=== PATIENT | female | born 1990 | race Hispanic/Latino ===

== ENCOUNTER 2024-07-17 16:40 | Emergency (ER) | payer OTHER, SELFPAY ==
[2024-07-17] VITALS (7 sets, daily range): BP systolic 94–102; BP diastolic 54–63; PULSE 63–81; RESP 16; TEMP 37; O2SAT 98–99; BMI 21.6
--- NOTE | 2024-07-17 17:07 | ED_ITS ---
HPI - General Adult <Isabelle Brink MD - Last Filed: 07/18/24 18:28> General Chief complaint: Urogenital-Female Stated complaint: LRQ pelvic pain, UTI Time Seen by Provider: 07/17/24 17:07 History of Present Illness HPI narrative: 34-year-old woman with no significant medical history complains of pelvic pain that has been worsening since June 29. She had an unprotected sexual encounter at that time was menstruating. Believe she took her tampon out but is worried that may still be remaining. I am not complaining of significant vaginal discharge but is having increasing right lower quadrant pain, shuffling walk difficulty standing up straight it is now radiating through into her right back. She has not noticing significant dysuria. She has had some low-grade fevers but no upper abdominal pain, nausea or vomiting. She has not coughing there has been no chest pain or palpitations. Related Data Previous Rx's Medication Instructions Recorded doxycycline hyclate 100 mg capsule 100 mg PO BID 14 days #28 caps 07/17/24 hydrocodone 5 mg-acetaminophen 325 1 tab PO Q8H PRN pain #10 tabs 07/17/24 mg tablet metronidazole 500 mg tablet 500 mg PO BID #28 tabs 07/17/24 Allergies Allergy/AdvReac Type Severity Reaction Status Date / Time amitriptyline Allergy Unknown Verified 07/17/24 17:25 Review of Systems <Isabelle Brink MD - Last Filed: 07/18/24 18:28> Review of Systems Narrative: Pertinent positive and negative findings as per HPI Patient History <Isabelle Brink MD - Last Filed: 07/18/24 18:28> Social History Smoking Status: Former smoker Smoking Status: Former smoker Substance Use Type: does not use Exam <Isabelle Brink MD - Last Filed: 07/18/24 18:28> Initial Vital Signs Initial Vital Signs: Vital Signs Temperature 98.6 F 07/17/24 16:49 Pulse Rate 74 07/17/24 16:49 Respiratory Rate 16 07/17/24 16:49 Blood Pressure 98/54 L 07/17/24 16:49 Pulse Oximetry 99 07/17/24 16:49 Oxygen Delivery Method Room Air 07/17/24 16:49 General: Healthy appearing, in pain and has difficulty standing from a chair . Able to give a complete and coherent history. HEENT: Moist mucous membranes, normal sclera with reactive pupils, Respiratory: Lungs are clear to auscultation, no wheezing no rales no rhonchi. Full and symmetrical air movement Cardiac: Regular rate and rhythm no murmurs no bruits Abdomen: Soft, mild tenderness in the upper abdomen and left lower quadrant significant tenderness in the right Lower quadrant. Minor guarding without obvious peritoneal signs Pelvic exam: External genitalia is unremarkable, no vesicles or abnormal lesions. No significant odor or vaginal discharge, she has significant cervical motion tenderness and tenderness into the right adnexa Skin: Warm and dry, no rashes Neurologic: Grossly neurologically intact with no obvious asymmetries or abnormalities Extremities: No trauma, well perfused Psych: Cooperative, appropriate insight and affect <Emelina Jack MD - Last Filed: 07/18/24 04:04> Initial Vital Signs Initial Vital Signs: Vital Signs Temperature 98.6 F 07/17/24 16:49 Pulse Rate 74 07/17/24 16:49 Respiratory Rate 16 07/17/24 16:49 Blood Pressure 98/54 L 07/17/24 16:49 Pulse Oximetry 99 07/17/24 16:49 Oxygen Delivery Method Room Air 07/17/24 16:49 Course <Isabelle Brink MD - Last Filed: 07/18/24 18:28> Orders Ordered: Discontinued Medications Hydromorphone HCl (Hydromorphone 0.5 Mg Inj) 0.5 mg IV Q15MIN PRN PRN Reason: Pain, Last Admin: 07/17/24 19:11 Dose: 0.5 mg Documented By: Admin: 07/17/24 18:18 Dose: 0.5 mg Documented By: SB Sodium Chloride (Normal Saline 0.9%) 1,000 mls @ 1,000 mls/hr IV BOLUS ONE Stop: 07/17/24 18:19 Last Infusion: 07/17/24 18:19 Dose: Infused Documented By: Admin: 07/17/24 17:28 Dose: 1,000 mls/hr Documented By: SB Ceftriaxone Sodium 2,000 mg/ (Sodium Chloride) 100 mls @ 200 mls/hr IV NOW ONE Stop: 07/17/24 17:22 Last Infusion: 07/17/24 18:19 Dose: Infused Documented By: Admin: 07/17/24 17:31 Dose: 200 mls/hr Documented By: SB Doxycycline Hyclate 100 mg/ (Sodium Chloride) 100 mls @ 100 mls/hr IV NOW ONE Stop: 07/17/24 17:22 Last Infusion: 07/17/24 19:30 Dose: Infused Documented By: Admin: 07/17/24 18:18 Dose: 100 mls/hr Documented By: LORNA Metronidazole (Flagyl) 500 mg in 100 mls @ 100 mls/hr IV NOW ONE Stop: 07/17/24 18:20 Last Infusion: 07/17/24 20:50 Dose: Infused Documented By: Admin: 07/17/24 19:45 Dose: 100 mls/hr Documented By: SB Ketorolac Tromethamine (Ketorolac 30 Mg/Ml Vial) 15 mg IV NOW ONE Stop: 07/17/24 17:31 Last Admin: 07/17/24 17:33 Dose: 15 mg Documented By: LORNA Ondansetron HCl (Ondansetron 4 Mg/2 Ml Inj) 4 mg IV NOW ONE Stop: 07/17/24 17:21 Last Admin: 07/17/24 17:27 Dose: 4 mg Documented By: LORNA Vital Signs Vital signs: Vital Signs - 8 hr 07/17/24 20:00 07/17/24 20:00 07/17/24 20:30 Pulse Rate 65 Blood Pressure 102/63 100/63 Pulse Oximetry 98 07/17/24 20:30 Pulse Rate 81 Blood Pressure Pulse Oximetry 99 <Emelina Jack MD - Last Filed: 07/18/24 04:04> Orders Ordered: Discontinued Medications Hydromorphone HCl (Hydromorphone 0.5 Mg Inj) 0.5 mg IV Q15MIN PRN PRN Reason: Pain, Last Admin: 07/17/24 19:11 Dose: 0.5 mg Documented By: Admin: 07/17/24 18:18 Dose: 0.5 mg Documented By: LORNA Sodium Chloride (Normal Saline 0.9%) 1,000 mls @ 1,000 mls/hr IV BOLUS ONE Stop: 07/17/24 18:19 Last Infusion: 07/17/24 18:19 Dose: Infused Documented By: Admin: 07/17/24 17:28 Dose: 1,000 mls/hr Documented By: SB Ceftriaxone Sodium 2,000 mg/ (Sodium Chloride) 100 mls @ 200 mls/hr IV NOW ONE Stop: 07/17/24 17:22 Last Infusion: 07/17/24 18:19 Dose: Infused Documented By: Admin: 07/17/24 17:31 Dose: 200 mls/hr Documented By: SB Doxycycline Hyclate 100 mg/ (Sodium Chloride) 100 mls @ 100 mls/hr IV NOW ONE Stop: 07/17/24 17:22 Last Infusion: 07/17/24 19:30 Dose: Infused Documented By: Admin: 07/17/24 18:18 Dose: 100 mls/hr Documented By: SB Metronidazole (Flagyl) 500 mg in 100 mls @ 100 mls/hr IV NOW ONE Stop: 07/17/24 18:20 Last Infusion: 07/17/24 20:50 Dose: Infused Documented By: Admin: 07/17/24 19:45 Dose: 100 mls/hr Documented By: LORNA Ketorolac Tromethamine (Ketorolac 30 Mg/Ml Vial) 15 mg IV NOW ONE Stop: 07/17/24 17:31 Last Admin: 07/17/24 17:33 Dose: 15 mg Documented By: LORNA Ondansetron HCl (Ondansetron 4 Mg/2 Ml Inj) 4 mg IV NOW ONE Stop: 07/17/24 17:21 Last Admin: 07/17/24 17:27 Dose: 4 mg Documented By: LORNA Vital Signs Vital signs: Vital Signs - 8 hr 07/17/24 20:00 07/17/24 20:00 07/17/24 20:30 Pulse Rate 65 Blood Pressure 102/63 100/63 Pulse Oximetry 98 07/17/24 20:30 Pulse Rate 81 Blood Pressure Pulse Oximetry 99 Medical Decision Making <Isabelle Brink MD - Last Filed: 07/18/24 18:28> Lab Data 07/17/24 17:26 07/17/24 17:26 Labs: Lab Results 07/17/24 07/17/24 Range/Units 17:10 17:26 WBC 5.2 (4.5-11.0) X10^3/uL RBC 3.42 L (4.0-5.2) X10^6/uL Hgb 9.8 L (12.0-16.0) g/dL Hct 29.8 L (36-46) % MCV 87.1 (80-100) fL MCH 28.7 (26-34) PG MCHC 32.9 (30-36) % RDW 14.8 (11.6-14.8) % Plt Count 297 (150-400) X10^3/uL Neut % (Auto) 67.0 (50-75) % Lymph % (Auto) 21.8 L (25-40) % [place] % (Auto) 10.4 (3-14) % Eos % (Auto) 0.2 L (2-4) % Baso % (Auto) 0.6 (0-2) % Neut # (Auto) 3500 (2521-6687) /uL Lymph # (Auto) 1100 (6919-2250) /uL [place] # (Auto) 500 (0-900) /uL Eos # (Auto) 0 (0-450) /uL Baso # (Auto) 0 (0-100) /uL Sodium 139 (137-145) mmol/L Potassium 3.4 (3.4-5.1) mmol/L Chloride 106 (98-107) mmol/L Carbon Dioxide 25 (22-32) mmol/L BUN 7 (7-17) mg/dL Creatinine 0.65 (0.52-1.04) mg/dL Estimated GFR > 60 (>60) mL/min BUN/Creatinine Ratio 10.8 (6-22) Glucose 92 (70-100) mg/dL Calcium 9.2 (8.4-10.2) mg/dL Total Bilirubin 1.2 (0.2-1.3) mg/dL AST 23 (14-36) IU/L ALT 13 (<35) IU/L Alkaline Phosphatase 37 L (38-126) U/L Total Protein 7.0 (6.3-8.2) g/dL Albumin 4.3 (3.5-5.0) g/dL Globulin 2.7 (1.7-4.1) g/dL Albumin/Globulin Ratio 1.6 (1.0-2.8) Urine RBC None seen (0-5/HPF) Urine WBC 5-10/hpf H (0-5/HPF) Ur Squamous Epith Cells 0-1 /hpf (0-5/HPF) Calcium Oxalate Crystal Few H Urine Bacteria None seen (None) Urine Mucus 1+ H (Negative) Ur Culture Indicated? Specimen cultured Vol Urine Centrifuged 10ml (spun) Ur Chlamydia DNA (PCR) Not detected HIV 1&2 Ab/P24 Ag 4thGn Negative (NEGATIVE) N gonorrhoeae DNA (PCR) Not detected Point of Care Testing Test Results Negative Urine Dip Bedside Urine Glucose Negative Bedside Urine Bilirubin - Negative Bedside Urine Ketone +/- 5 Urine Specific [place] 1.020 Bedside Urine Occult Blood - Negative Bedside Urine pH 6 Bedside Urine Protein +/- 15 Bedside Urine Urobilinogen - Negative Bedside Urine Nitrite - Negative Bedside Urine Leukocytes +/- 15 Esterase Point of care testing: Point of Care Testing Test Results Negative Urine Dip Bedside Urine Glucose Negative Bedside Urine Bilirubin - Negative Bedside Urine Ketone +/- 5 Urine Specific [place] 1.020 Bedside Urine Occult Blood - Negative Bedside Urine pH 6 Bedside Urine Protein +/- 15 Bedside Urine Urobilinogen - Negative Bedside Urine Nitrite - Negative Bedside Urine Leukocytes +/- 15 Esterase MDM Narrative Medical decision making narrative: CC: Increasing pelvic and right lower quadrant tenderness since July 01 Data collected from: patient Social determinants of health that may influence the patients condition: Recently moved to [facility]. Medical records reviewed: She has a x4. New sexual partner around July 01 with unprotected intercourse Differential considered: Pelvic inflammatory disease, tubo-ovarian abscess, appendicitis Exam documented above, pertinent findings include: Patient appears significantly uncomfortable significant cervical motion tenderness on pelvic exam without significant vaginal discharge. Tender into the right adnexa. Lab Test results independently reviewed as above. Pertinent findings: With shared decision-making she did want to proceed with HIV and hepatitis testing as well as vaginal STI testing. All of this is ordered Imaging studies independently reviewed: Consultations: Treatments: Given the degree of pain she is experiencing will opt to begin PID treatment as if she will be admitted while we are obtaining additional information. Fluids, Zofran, Toradol all parenteral. She is given ceftriaxone, 2 g in case this is pyelonephritis rather than gonorrhea related pelvic inflammatory disease, IV metronidazole and IV doxycycline are also initiated. Re-evaluations: Discussion: <Emelina Jack MD - Last Filed: 07/18/24 04:04> Lab Data Labs: Lab Results 07/17/24 07/17/24 Range/Units 17:10 17:26 WBC 5.2 (4.5-11.0) X10^3/uL RBC 3.42 L (4.0-5.2) X10^6/uL Hgb 9.8 L (12.0-16.0) g/dL Hct 29.8 L (36-46) % MCV 87.1 (80-100) fL MCH 28.7 (26-34) PG MCHC 32.9 (30-36) % RDW 14.8 (11.6-14.8) % Plt Count 297 (150-400) X10^3/uL Neut % (Auto) 67.0 (50-75) % Lymph % (Auto) 21.8 L (25-40) % [place] % (Auto) 10.4 (3-14) % Eos % (Auto) 0.2 L (2-4) % Baso % (Auto) 0.6 (0-2) % Neut # (Auto) 3500 (1875-9319) /uL Lymph # (Auto) 1100 (0541-2380) /uL [place] # (Auto) 500 (0-900) /uL Eos # (Auto) 0 (0-450) /uL Baso # (Auto) 0 (0-100) /uL Sodium 139 (137-145) mmol/L Potassium 3.4 (3.4-5.1) mmol/L Chloride 106 (98-107) mmol/L Carbon Dioxide 25 (22-32) mmol/L BUN 7 (7-17) mg/dL Creatinine 0.65 (0.52-1.04) mg/dL Estimated GFR > 60 (>60) mL/min BUN/Creatinine Ratio 10.8 (6-22) Glucose 92 (70-100) mg/dL Calcium 9.2 (8.4-10.2) mg/dL Total Bilirubin 1.2 (0.2-1.3) mg/dL AST 23 (14-36) IU/L ALT 13 (<35) IU/L Alkaline Phosphatase 37 L (38-126) U/L Total Protein 7.0 (6.3-8.2) g/dL Albumin 4.3 (3.5-5.0) g/dL Globulin 2.7 (1.7-4.1) g/dL Albumin/Globulin Ratio 1.6 (1.0-2.8) Urine RBC None seen (0-5/HPF) Urine WBC 5-10/hpf H (0-5/HPF) Ur Squamous Epith Cells 0-1 /hpf (0-5/HPF) Calcium Oxalate Crystal Few H Urine Bacteria None seen (None) Urine Mucus 1+ H (Negative) Ur Culture Indicated? Specimen cultured Vol Urine Centrifuged 10ml (spun) Ur Chlamydia DNA (PCR) Not detected HIV 1&2 Ab/P24 Ag 4thGn Negative (NEGATIVE) N gonorrhoeae DNA (PCR) Not detected Point of Care Testing Test Results Negative Urine Dip Bedside Urine Glucose Negative Bedside Urine Bilirubin - Negative Bedside Urine Ketone +/- 5 Urine Specific [place] 1.020 Bedside Urine Occult Blood - Negative Bedside Urine pH 6 Bedside Urine Protein +/- 15 Bedside Urine Urobilinogen - Negative Bedside Urine Nitrite - Negative Bedside Urine Leukocytes +/- 15 Esterase Point of care testing: Point of Care Testing Test Results Negative Urine Dip Bedside Urine Glucose Negative Bedside Urine Bilirubin - Negative Bedside Urine Ketone +/- 5 Urine Specific [place] 1.020 Bedside Urine Occult Blood - Negative Bedside Urine pH 6 Bedside Urine Protein +/- 15 Bedside Urine Urobilinogen - Negative Bedside Urine Nitrite - Negative Bedside Urine Leukocytes +/- 15 Esterase MDM Narrative Medical decision making narrative: CC: Increasing pelvic and right lower quadrant tenderness since July 01 Data collected from: patient Social determinants of health that may influence the patients condition: Recently moved to [place] from [place]. Medical records reviewed: She has a x4. New sexual partner around July 01 with unprotected intercourse Differential considered: Pelvic inflammatory disease, tubo-ovarian abscess, appendicitis Exam documented above, pertinent findings include: Patient appears significantly uncomfortable significant cervical motion tenderness on pelvic exam without significant vaginal discharge. Tender into the right adnexa. Lab Test results independently reviewed as above. Pertinent findings: With shared decision-making she did want to proceed with HIV and hepatitis testing as well as vaginal STI testing. All of this is ordered Imaging studies independently reviewed: Consultations: Treatments: Given the degree of pain she is experiencing will opt to begin PID treatment as if she will be admitted while we are obtaining additional information. Fluids, Zofran, Toradol all parenteral. She is given ceftriaxone, 2 g in case this is pyelonephritis rather than gonorrhea related pelvic inflammatory disease, IV metronidazole and IV doxycycline are also initiated. Re-evaluations: Discussion: Dr. Jack -care of patient is signed out to myself by Dr. Brink, independent review of chart inpatient performed by myself. Ultrasound shows no tubo-ovarian abscess, no ovarian torsion. Unable to visualize appendix on ultrasound. With patient's reported severity of pain a CT scan was ordered to ensure that there were no other underlying causes of patient's reported right-sided pain. CT imaging negative for appendicitis or other concerning inflammatory sides. Patient reassessed, resting comfortably in bed, states pain is very well controlled with the medications administered. Patient's gonorrhea and chlamydia swabs negative, patient did test positive for Trichomonas. Hepatitis panel is pending and lab states that this is a send out test that will not be back for at least 5 business days. Discussed possibility of PID even with negative GC/Chlamydia with on-call OBGYN Dr. You, who stated that, while uncommon, it was possible to have PID with Trichomonas infection and recommended usual treatment with antibiotics and OBGYN follow up. Patient was informed of all of her lab and imaging findings, she was in agreement with plan. Antibiotics and pain medications sent to pharmacy of choice. OBGYN referral number provided. Discharge Plan Departure Patient Disposition: Home Clinical Impression: Acute pelvic inflammatory disease, infection, trichomonal Instructions: DI for Pelvic Inflammatory Disease (PID) Activity Restrictions/Additional Instructions: Your ultrasound and CT imaging did not show any evidence of abscess or infection. Your gonorrhea, chlamydia, HIV tests were negative. You did test positive for Trichomonas, which is another sexually transmitted bacterial infection. This is going to be treated with 1 of the antibiotics you were prescribed. Your hepatitis panel is pending, it should resolve within the next week, I would check your patient portal for results, however your liver enzymes here today were normal. Finish all of your antibiotics as prescribed even if you feel better. Follow up with OBGYN. A referral number has been provided. Tylenol and anti-inflammatories such as ibuprofen our best for pain. If these do not control your pain then a short course of pain medication has been sent to your pharmacy. Be careful with this medication as it may cause drowsiness and should not be taken with alcohol or before driving. This also may cause constipation, take a daily stool softener with this medication. Prescriptions: New doxycycline hyclate 100 mg capsule 100 mg PO BID 14 Days Qty: 28 0RF metronidazole 500 mg tablet 500 mg PO BID Qty: 28 0RF hydrocodone-acetaminophen 5-325 mg tablet 1 tab PO Q8H PRN (Reason: pain) Qty: 10 0RF Referrals: Miscellaneous,Doctor, [Primary Care Provider] - Audra You DO [Physician] - Stand Alone Forms: Patient Portal/API, Work Release Note
--- NOTE | 2024-07-17 17:21 | DI.US.S_ITS ---
PROCEDURE: US PELVIC COMPLETE INDICATIONS: Right adnexal pain, ? Tubo-ovarian abscess vs PID TECHNIQUE: Real-time scanning was performed of the pelvic organs, with image documentation. Additional endovaginal scanning was necessary due to incomplete visualization of the adnexal and endometrial structures by transabdominal scanning. COMPARISON: None. FINDINGS: Uterus: Uterus is anteverted and normal in size at 7.8 x 5.5 x 7 x 2 cm. The myometrium is homogeneous. The endometrium measures 13 mm combined thickness. No abnormal vascularity can be seen along the endometrial stripe. Ovaries: The right ovary measures 2.2 x 3.7 x 1.7 cm, with a calculated ovarian volume of 7.1 cc. The left ovary measures 3.5 x 2.8 x 2.9 cm, with a calculated ovarian volume of 14.7 cc. The ovaries have a normal sonographic appearance, with note made of a 2.4 cm simple appearing cystic follicle of the left ovary, which is considered to be within physiologic limits. Less than 12 follicles can be seen in each ovary. No adnexal masses are seen. Normal appearing arterial waveforms are confirmed to each ovary. Other: No pathologic free abdominal or pelvic fluid. Additional, dedicated ultrasound scanning is performed at the area of right lower quadrant. No appendix (either normal or abnormal) is identified on this study. IMPRESSION: No significant ultrasound abnormality is identified. Negative for ovarian torsion. No adnexal masses or fluid collections can be seen. We strive to produce accurate, complete, and clear reports of imaging services. To assist us in improving patient care, this report was composed using standard report templates and voice recognition software. Therefore, it may contain abnormal punctuation, insertions and/or omissions. Occasional wrong-word or sound-alike substitutions may occur. Though we review the report and make efforts to correct it, we do recommend that the report be read carefully in proper context to recognize any text inaccuracies. Dictated by: Juan Perez M.D. on 07/17/2024 at 17:32 Approved by: Juan Perez M.D. on 07/17/2024 at 17:34
[2024-07-17] MEDS: ONDANSETRON 4 MG/2 ML INJ IV (17:27)
[2024-07-17 17:28] LABS: Urine Volume 10mL (spun)
[2024-07-17] MEDS: SODIUM CHLORIDE 0.9% 1,000 ML 1000 ML IV (17:28)
[2024-07-17 17:29] LABS: Bacteria Urine None Seen; Mucus Urine 1+ (Negative); RBC Urine None Seen (0-5/HPF); Squamous Epithelial Cell Urine 0-1 /HPF (0-5/HPF); WBC Urine 5-10/HPF (0-5/HPF)
[2024-07-17 17:30] LABS: Calcium Oxalate Crystals Urine Few; Culture Indicated Urine Specimen Cultured
[2024-07-17] MEDS: cefTRIAXone 2,000 MG in SODIUM CHLORIDE 0.9% 100 ML 200 MG IV (17:31)
[2024-07-17] MEDS: KETOROLAC 30 MG/ML VIAL 15 MG IV (17:33)
[2024-07-17 17:34] LABS: Add Manual Diff / Slide Review NO; Basophils Absolute Auto 0 /uL (0-100); Basophils Percent Auto 0.6 % (0-2); Eosinophils Absolute Auto 0 /uL (0-450); Eosinophils Percent Auto 0.2 % (2-4); Hematocrit 29.8 % (36-46); Hemoglobin 9.8 g/dL (12.0-16.0); Lymphocytes Absolute Auto 1100 /uL (1100-4500); Lymphocytes Percent Auto 21.8 % (25-40); Mean Corpuscular HGB Conc 32.9 % (30-36); Mean Corpuscular Hemoglobin 28.7 PG (26-34); Mean Corpuscular Volume 87.1 fL (80-100); Monocytes Absolute Auto 500 /uL (0-900); Monocytes Percent Auto 10.4 % (3-14); Neutrophils Absolute Auto 3500 /uL (1500-7000); Platelet Count 297 X10^3/uL (150-400); Red Blood Cell Count 3.42 X10^6/uL (4.0-5.2); Red Cell Distribution Width 14.8 % (11.6-14.8); White Blood Cell Count 5.2 X10^3/uL (4.5-11.0)
[2024-07-17 17:45] LABS: Alanine Aminotransferase 13 IU/L (<35); Albumin 4.3 g/dL (3.5-5.0); Albumin Globulin Ratio 1.6 (1.0-2.8); Alkaline Phosphatase 37 U/L (38-126); Aspartate Aminotransferase 23 IU/L (14-36); BUN Creatinine Ratio 10.8 (6-22); Bilirubin Total 1.2 mg/dL (0.2-1.3); Blood Urea Nitrogen 7 mg/dL (7-17); Calcium 9.2 mg/dL (8.4-10.2); Carbon Dioxide 25 mmol/L (22-32); Chloride 106 mmol/L (98-107); Estimated Glomerular Filt Rate > 60 mL/min (>60); Globulin 2.7 g/dL (1.7-4.1); Glucose 92 mg/dL (70-100); HEMOLYSIS < 15 (0-50); Potassium 3.4 mmol/L (3.4-5.1); Sodium 139 mmol/L (137-145)
[2024-07-17] MEDS: DOXYCYCLINE 100 MG in SODIUM CHLORIDE 0.9% 100 ML IV (18:18)
[2024-07-17] MEDS: HYDROMORPHONE 0.5 MG INJ IV ×2 (18:18→19:11)
--- NOTE | 2024-07-17 18:26 | DI.CT.S_ITS ---
PROCEDURE: CT ABDOMEN PELVIS W CON INDICATIONS: RLQ ABD PAIN TECHNIQUE: After the administration of intravenous contrast, axial sections acquired from the lung bases to the pubic symphysis. Coronal and sagittal reformats were performed. For radiation dose reduction, the following was used: automated exposure control, adjustment of mA and/or kV according to patient size. COMPARISON: [facility], , US PELVIC COMPLETE, 07/17/2024, 17:59. FINDINGS: Image quality: Diagnostic. Lower Chest: No significant findings. ABDOMEN: Liver: No solid mass. Periportal edema can be seen. No iraj biliary dilatation can be seen. Gallbladder: No radiopaque gallstones or wall thickening. Biliary ducts: No biliary dilation. Pancreas: No ductal dilation. Spleen: Size is within normal limits. Adrenal Glands: No adrenal nodules. Kidneys and Ureters: No hydronephrosis. No solid mass. No complex renal cystic lesion which requires follow up. Stomach and Bowel: Normal colonic caliber, without significant wall thickening. No significant colonic abnormality is seen. A normal appendix is partially seen within the right lower quadrant. No focal right lower quadrant inflammatory changes are seen. No dilated loops of small bowel are seen. The stomach demonstrates no significant abnormality. Peritoneum: No abnormal intraperitoneal fluid. No free air. Ventral Wall: No significant ventral hernia. Abdominal Nodes: No retroperitoneal or mesenteric adenopathy by size criteria. Vessels: Aorta and inferior vena cava are normal in size. PELVIS: Pelvic Organs: A relatively bulky uterus is seen. There are prominent vessels seen along the surface of the uterus, left worse than right. There is hypertrophy of the left gonadal vein. No suspicious adnexal masses are seen. There is a left ovarian cyst seen, which is better demonstrated on the accompanying ultrasound. Bladder: No bladder wall thickening, accounting for underdistention. Pelvic Nodes: No enlarged lymph nodes. Miscellaneous: No inguinal hernias are seen. Bones: No aggressive osseous abnormality. IMPRESSION: Normal appendix. No focal right lower quadrant inflammatory change is seen. Periportal edema can be seen. This is nonspecific, yet a can be seen in patients with hepatitis. Apparent pelvic varices noted, with hypertrophy of the left canal vein. Dictated by: Juan Perez M.D. on 07/17/2024 at 17:54 Approved by: Juan Perez M.D. on 07/17/2024 at 17:57
[2024-07-17 18:51] LABS: HIV 1 & 2 Ab/Ag 4th Gen Combo NEGATIVE (NEGATIVE)
[2024-07-17 19:01] LABS: Urine N gonorrhoeae NOT DETECTED
[2024-07-17 19:08] LABS: Urine Chlamydia NOT DETECTED
[2024-07-17] MEDS: metroNIDAZOLE 500 MG/100 ML PIGGYBACK 100 MG IV (19:45)
[2024-07-19 05:40] LABS: HBsAg Screen Negative (Negative); Hepatitis A Antibody IgM Negative (Negative); Hepatitis B Core Antibody IgM Negative (Negative); Hepatitis C Antibody Non Reactive (Non Reactive)
== END 2024-07-17 20:51 | disposition home or self-care (01) ==
PROVIDERS: Emergency Medicine; Emergency Provider Emergency Medicine
DX: N73.0 Acute parametritis and pelvic cellulitis (principal); A59.00 Urogenital trichomoniasis, unspecified
CPT/HCPCS: 36415; 74177; 76830; 76856; 80053; 80074; 81003; 81015; 81025; 85025; 87086; 87210; 87389; 87491; 87591; 93975; 96365; 96367; 96375; 96376; 99284; J0696; J1170; J1885; J2405; Q9967

== ENCOUNTER 2024-07-23 13:01 | Emergency (ER) | payer OTHER, SELFPAY ==
[2024-07-23] VITALS (9 sets, daily range): BP systolic 101–131; BP diastolic 56–75; PULSE 52–77; RESP 14–16; TEMP 37.2; O2SAT 97–100; BMI 21.6
[2024-07-23 13:41] LABS: Add Manual Diff / Slide Review NO; Basophils Absolute Auto 0 /uL (0-100); Basophils Percent Auto 0.8 % (0-2); Eosinophils Absolute Auto 0 /uL (0-450); Eosinophils Percent Auto 0.2 % (2-4); Hematocrit 33.4 % (36-46); Hemoglobin 10.8 g/dL (12.0-16.0); Lymphocytes Absolute Auto 1000 /uL (1100-4500); Lymphocytes Percent Auto 23.8 % (25-40); Mean Corpuscular HGB Conc 32.5 % (30-36); Mean Corpuscular Hemoglobin 28.5 PG (26-34); Mean Corpuscular Volume 87.8 fL (80-100); Monocytes Absolute Auto 500 /uL (0-900); Neutrophils Absolute Auto 2600 /uL (1500-7000); Neutrophils Percent Auto 64.2 % (50-75); Platelet Count 270 X10^3/uL (150-400); Red Cell Distribution Width 15.1 % (11.6-14.8); White Blood Cell Count 4.1 X10^3/uL (4.5-11.0)
[2024-07-23 13:54] LABS: Urine Volume 10mL (spun)
[2024-07-23 13:56] LABS: Bacteria Urine Many (>30); Culture Indicated Urine Cult Not Indicated; RBC Urine None Seen (0-5/HPF); Squamous Epithelial Cell Urine 10-30 /HPF (0-5/HPF); WBC Urine 1-5/HPF (0-5/HPF)
[2024-07-23 14:32] LABS: Alanine Aminotransferase 19 IU/L (<35); Albumin 4.5 g/dL (3.5-5.0); Albumin Globulin Ratio 1.4 (1.0-2.8); Alkaline Phosphatase 46 U/L (38-126); Aspartate Aminotransferase 25 IU/L (14-36); BUN Creatinine Ratio 20.4 (6-22); Blood Urea Nitrogen 11 mg/dL (7-17); Calcium 9.6 mg/dL (8.4-10.2); Carbon Dioxide 18 mmol/L (22-32); Chloride 106 mmol/L (98-107); Estimated Glomerular Filt Rate > 60 mL/min (>60); Globulin 3.2 g/dL (1.7-4.1); Glucose 100 mg/dL (70-100); HEMOLYSIS < 15 (0-50); Lipase 39 U/L (23-300); Potassium 4.1 mmol/L (3.4-5.1); Sodium 135 mmol/L (137-145); Total Protein 7.7 g/dL (6.3-8.2)
--- NOTE | 2024-07-23 16:10 | ED_ITS ---
HPI - Abdominal Pain General Chief Complaint: Abdominal Pain Stated Complaint: diff walking Time Seen by Provider: 07/23/24 15:04 History of Present Illness HPI narrative: Patient returns for continued right lower quadrant pain. Seen here 5 days ago for the same. Was treated for PID. Still on antibiotics. Has had urinary frequency. Pain with movement and walking. test negative from last visit. Positive for Trichomonas. Negative chlamydia. Related Data Previous Rx's Medication Instructions Recorded hydrocodone 5 mg-acetaminophen 325 1 tab PO Q8H PRN pain #10 tabs 07/17/24 mg tablet metronidazole 500 mg tablet 500 mg PO BID #28 tabs 07/17/24 hydrocodone 5 mg-acetaminophen 325 1 tab PO Q6H PRN pain #15 tabs 07/23/24 mg tablet Allergies Allergy/AdvReac Type Severity Reaction Status Date / Time amitriptyline Allergy Unknown Verified 07/17/24 17:25 Review of Systems Review of Systems Narrative: GENERAL: negative chills, fatigue, malaise, fever, sweats. HEENT: negative sinus pain, ear pain, sore throat RESPIRATORY: negative dyspnea, cough CARDIOVASCULAR: negative chest pain, palpitations GASTROINTESTINAL: negative nausea, vomiting, positive abdominal pain : negative dysuria, frequency, hematuria MUSCULOSKELETAL: negative muscle or bony pain SKIN: negative rash, skin lesions NEUROLOGIC: negative weakness, numbness Patient History Social History Smoking Status: Former smoker Smoking Status: Former smoker Substance Use Type: does not use Exam Narrative Exam Narrative: GENERAL: in no distress, not toxic not dyspneic HEAD: Normocephalic. EYES: Pupils equal round ENT: Mucous membranes moist. NECK: Trachea midline. CARDIOVASCULAR: Regular rate and rhythm RESPIRATORY: Clear to auscultation. Breath sounds equal bilaterally. No wheezes, rales, or rhonchi. GASTROINTESTINAL: Abdomen soft, right lower quadrant tenderness. No peritoneal signs no guarding no rebound. Mild McBurney point tenderness. No pain out of portion exam. EXTREMITIES: No gross deformities. BACK: No flank tenderness. NEURO: AOx4. Clear speech SKIN: Warm and dry PSYCH: Not anxious, is cooperative Initial Vital Signs Initial Vital Signs: Vital Signs Temperature 98.9 F 07/23/24 13:14 Pulse Rate 77 07/23/24 13:14 Respiratory Rate 16 07/23/24 13:14 Blood Pressure 101/56 L 07/23/24 13:14 Pulse Oximetry 97 07/23/24 13:14 Oxygen Delivery Method Room Air 07/23/24 13:14 Course Orders Ordered: Discontinued Medications Hydromorphone HCl (Hydromorphone 1 Mg Inj) 1 mg IV NOW ONE Stop: 07/23/24 16:09 Last Admin: 07/23/24 16:16 Dose: 1 mg Documented By: PHILIP Sodium Chloride (Normal Saline 0.9%) 1,000 mls @ 1,000 mls/hr IV BOLUS ONE Stop: 07/23/24 17:07 Last Infusion: 07/23/24 18:27 Dose: Infused Documented By: Admin: 07/23/24 16:16 Dose: 1,000 mls/hr Documented By: PHILIP Ondansetron HCl (Ondansetron 4 Mg/2 Ml Inj) 4 mg IV NOW PRN PRN Reason: Nausea And Vomiting Ondansetron HCl (Ondansetron 4 Mg/2 Ml Inj) 4 mg IV NOW ONE Stop: 07/23/24 16:09 Last Admin: 07/23/24 16:16 Dose: 4 mg Documented By: PHILIP Vital Signs Vital signs: Vital Signs - 8 hr 07/23/24 13:14 07/23/24 14:45 07/23/24 14:57 Temperature 98.9 F Pulse Rate 77 58 L Respiratory Rate 16 Blood Pressure 101/56 L 104/63 Pulse Oximetry 97 100 Oxygen Delivery Method Room Air 07/23/24 15:00 07/23/24 15:00 07/23/24 15:30 Temperature Pulse Rate 55 L 57 L Respiratory Rate Blood Pressure 105/63 Pulse Oximetry 100 100 Oxygen Delivery Method 07/23/24 15:30 07/23/24 16:00 07/23/24 16:00 Temperature Pulse Rate 52 L Respiratory Rate Blood Pressure 120/75 118/67 Pulse Oximetry 100 Oxygen Delivery Method 07/23/24 16:20 07/23/24 16:20 07/23/24 16:30 Temperature Pulse Rate 61 Respiratory Rate Blood Pressure 131/74 Pulse Oximetry 99 98 Oxygen Delivery Method 07/23/24 16:30 Temperature Pulse Rate Respiratory Rate Blood Pressure 121/72 Pulse Oximetry Oxygen Delivery Method MDM - Abdominal Pain Lab Data 07/23/24 13:35 07/23/24 13:35 Labs: Lab Results 07/23/24 07/23/24 Range/Units 13:19 13:35 WBC 4.1 L (4.5-11.0) X10^3/uL RBC 3.80 L (4.0-5.2) X10^6/uL Hgb 10.8 L (12.0-16.0) g/dL Hct 33.4 L (36-46) % MCV 87.8 (80-100) fL MCH 28.5 (26-34) PG MCHC 32.5 (30-36) % RDW 15.1 H (11.6-14.8) % Plt Count 270 (150-400) X10^3/uL Neut % (Auto) 64.2 (50-75) % Lymph % (Auto) 23.8 L (25-40) % Mcmullen % (Auto) 11.0 (3-14) % Eos % (Auto) 0.2 L (2-4) % Baso % (Auto) 0.8 (0-2) % Neut # (Auto) 2600 (1366-8013) /uL Lymph # (Auto) 1000 L (2045-0217) /uL [place]mullen # (Auto) 500 (0-900) /uL Eos # (Auto) 0 (0-450) /uL Baso # (Auto) 0 (0-100) /uL Sodium 135 L (137-145) mmol/L Potassium 4.1 (3.4-5.1) mmol/L Chloride 106 (98-107) mmol/L Carbon Dioxide 18 L (22-32) mmol/L BUN 11 (7-17) mg/dL Creatinine 0.54 (0.52-1.04) mg/dL Estimated GFR > 60 (>60) mL/min BUN/Creatinine Ratio 20.4 (6-22) Glucose 100 (70-100) mg/dL Calcium 9.6 (8.4-10.2) mg/dL Total Bilirubin 1.0 (0.2-1.3) mg/dL AST 25 (14-36) IU/L ALT 19 (<35) IU/L Alkaline Phosphatase 46 (38-126) U/L Total Protein 7.7 (6.3-8.2) g/dL Albumin 4.5 (3.5-5.0) g/dL Globulin 3.2 (1.7-4.1) g/dL Albumin/Globulin Ratio 1.4 (1.0-2.8) Lipase 39 (23-300) U/L Urine RBC None seen (0-5/HPF) Urine WBC 1-5/hpf (0-5/HPF) Ur Squamous Epith Cells 10-30 /hpf H D (0-5/HPF) Urine Bacteria Many (>30) H (None) Ur Culture Indicated? Cult not indicated Vol Urine Centrifuged 10ml (spun) Point of care testing: Point of Care Testing Test Results Negative Urine Dip Bedside Urine Glucose Negative Bedside Urine Bilirubin - Negative Bedside Urine Ketone - Negative Urine Specific [place] 1.025 Bedside Urine Occult Blood - Negative Bedside Urine pH 6.0 Bedside Urine Protein - Negative Bedside Urine Urobilinogen - Negative Bedside Urine Nitrite - Negative Bedside Urine Leukocytes +/- [address] scan - abdomen/pelvis: Radiologist's Impression: [address] [address] [address] Scan Report Signed Patient: Basilia Nguyen MR#: [id number] : 1990 Acct:[id number] Age/Sex: 34 / F Date of Service: 07/23/24 Loc: ED Accession Number: [id number] Procedure: CT abdomen pelvis w con Ordering Provider: Marin Tom MD PROCEDURE: CT ABDOMEN PELVIS W CON INDICATIONS: IV contrast only/right lower quadrant pain TECHNIQUE: After the administration of intravenous contrast, axial sections acquired from the lung bases to the pubic symphysis. Coronal and sagittal reformats were performed. For radiation dose reduction, the following was used: automated exposure control, adjustment of mA and/or kV according to patient size. COMPARISON: [facility], CT, CT ABDOMEN PELVIS W CON, 07/17/2024, 18:33. FINDINGS: Image quality: Diagnostic. Lower Chest: No significant findings. ABDOMEN: Liver: No solid mass. Gallbladder: No radiopaque gallstones or wall thickening. Biliary ducts: No biliary dilation. Pancreas: No ductal dilation. Spleen: Size is within normal limits. Adrenal Glands: No adrenal nodules. Kidneys and Ureters: No hydronephrosis. No solid mass. No complex renal cystic lesion which requires follow up. Stomach and Bowel: Normal colonic caliber, without significant wall thickening. Normal appendix. Peritoneum: No abnormal intraperitoneal fluid. No free air. Ventral Wall: No significant ventral hernia. Abdominal Nodes: No retroperitoneal or mesenteric adenopathy by size criteria. Vessels: Aorta and inferior vena cava are normal in size. PELVIS: Pelvic Organs: Left-sided corpus luteum. Bladder: No bladder wall thickening, accounting for underdistention. Pelvic Nodes: No enlarged lymph nodes. Miscellaneous: No inguinal hernias are seen. Bones: No aggressive osseous abnormality. IMPRESSION: No findings to explain the patient's right lower quadrant pain. No nephrolithiasis. Normal gallbladder. Normal appendix. Dictated by: Tonye Gomez M.D. on 07/23/2024 at 17:39 Approved by: Toney Gomez M.D. on 07/23/2024 at 17:42 [facility] Narrative Medical decision making narrative: Patient returns for continued right lower quadrant pain. Seen here 5 days ago for the same. Was treated for PID. Still on antibiotics. Has had urinary frequency. Pain with movement and walking. test negative from last visit. Positive for Trichomonas. Negative chlamydia. After history and exam Dilaudid Zofran normal saline CBC CMP urinalysis CT abdomen pelvis [facility] Medical records reviewed: ER visit here laboratory studies CT imaging/pelvic ultrasound, no acute findings on pelvic ultrasound, there is periportal edema on CT imaging Differential considered: Includes but not limited to appendicitis pyelonephritis PID ovarian cyst ovarian torsion ovarian cyst ovarian abscess Lab Test results independently reviewed as above. Pertinent findings: WBC 4.1 hemoglobin 10.8 sodium 135 AST 25 ALT 19 Imaging studies independently reviewed: CT abdomen pelvis no acute finding Consultations: None indicated this time Treatments: Dilaudid Zofran normal saline Re-evaluations: 6:00 p.m.. Pain controlled. Reviewed results with patient. Laboratory studies imaging studies are reassuring. Prescription refill for pain medication provided. She agrees with treatment plan. 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 Discussion: Appropriate for discharge home exam and laboratory studies imaging studies are reassuring. Pain is controlled. 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 She desires discharge home. Patient had CT scan imaging and pelvic ultrasound previous here visit, no repeat pelvic ultrasound indicated at this time Diagnosis: Abdominal pain Discharge Plan Departure Patient Disposition: Home Clinical Impression: Abdominal pain Qualifiers: Abdominal location: right lower quadrant Qualified Code(s): R10.31 - Right lower quadrant pain Instructions: DI for Abdominal Pain-Adult Activity Restrictions/Additional Instructions: Your exam and laboratory studies and imaging studies are reassuring. No new medications/antibiotics are indicated. Continue home medications. Prescription for pain medication has been provided. No driving operating machinery tonight or when taking prescribed pain medication. Return if worse if any questions or concerns Prescriptions: New hydrocodone-acetaminophen 5-325 mg tablet 1 tab PO Q6H PRN (Reason: pain) Qty: 15 0RF No Action metronidazole 500 mg tablet 500 mg PO BID Qty: 28 0RF hydrocodone-acetaminophen 5-325 mg tablet 1 tab PO Q8H PRN (Reason: pain) Qty: 10 0RF Referrals: Miscellaneous,Doctor, MD [Primary Care Provider] - Stand Alone Forms: Patient Portal/API, Work Release Note
[2024-07-23] MEDS: ONDANSETRON 4 MG/2 ML INJ IV (16:16)
[2024-07-23] MEDS: HYDROMORPHONE 1 MG INJ IV (16:16)
[2024-07-23] MEDS: SODIUM CHLORIDE 0.9% 1,000 ML 1000 ML IV (16:16)
--- NOTE | 2024-07-23 17:12 | PC.NURSE ---
patient ambulated to the restroom independently and reported her pain was under control at this time.
== END 2024-07-23 18:26 | disposition home or self-care (01) ==
PROVIDERS: Emergency Provider Emergency Medicine
DX: R10.31 Right lower quadrant pain (principal); R35.0 Frequency of micturition
CPT/HCPCS: 36415; 74177; 80053; 81003; 81015; 81025; 83690; 85025; 96361; 96374; 96375; 99284; J1170; J2405

== ENCOUNTER 2024-08-06 12:26 | Emergency (ER) | payer OTHER, SELFPAY ==
[2024-08-06] VITALS (20 sets, daily range): BP systolic 93–131; BP diastolic 56–86; PULSE 46–91; RESP 7–27; TEMP 37.6; O2SAT 93–100; BMI 21.2
[2024-08-06 13:18] LABS: Add Manual Diff / Slide Review NO; Basophils Absolute Auto 0 /uL (0-100); Basophils Percent Auto 0.5 % (0-2); Eosinophils Absolute Auto 0 /uL (0-450); Hematocrit 35.7 % (36-46); Hemoglobin 11.7 g/dL (12.0-16.0); Lymphocytes Absolute Auto 1000 /uL (1100-4500); Lymphocytes Percent Auto 13.1 % (25-40); Mean Corpuscular HGB Conc 32.7 % (30-36); Mean Corpuscular Hemoglobin 28.2 PG (26-34); Monocytes Absolute Auto 500 /uL (0-900); Monocytes Percent Auto 6.3 % (3-14); Neutrophils Absolute Auto 6100 /uL (1500-7000); Neutrophils Percent Auto 80.1 % (50-75); Platelet Count 402 X10^3/uL (150-400); Red Blood Cell Count 4.15 X10^6/uL (4.0-5.2); Red Cell Distribution Width 15.1 % (11.6-14.8); White Blood Cell Count 7.6 X10^3/uL (4.5-11.0)
--- NOTE | 2024-08-06 13:20 | EKG_ITS ---
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
[2024-08-06 13:26] LABS: INR 1.1 (0.9-1.3); Prothrombin Time 13.1 SECONDS (9.4-12.5)
[2024-08-06 13:33] LABS: Alanine Aminotransferase 15 IU/L (<35); Albumin Globulin Ratio 1.6 (1.0-2.8); Alkaline Phosphatase 49 U/L (38-126); Aspartate Aminotransferase 24 IU/L (14-36); Bilirubin Total 0.9 mg/dL (0.2-1.3); Blood Urea Nitrogen 9 mg/dL (7-17); Calcium 9.8 mg/dL (8.4-10.2); Carbon Dioxide 23 mmol/L (22-32); Chloride 104 mmol/L (98-107); Estimated Glomerular Filt Rate > 60 mL/min (>60); Globulin 3.2 g/dL (1.7-4.1); Glucose 94 mg/dL (70-100); HEMOLYSIS < 15 (0-50); Lipase 69 U/L (23-300); Potassium 3.7 mmol/L (3.4-5.1); Sodium 139 mmol/L (137-145); Total Protein 8.2 g/dL (6.3-8.2)
--- NOTE | 2024-08-06 15:25 | ED_ITS ---
HPI - Weakness <Josephine Alba DO - Last Filed: 08/07/24 07:41> General Chief complaint: Weakness Stated complaint: abd, pelvis px Time Seen by Provider: 08/06/24 15:25 History of Present Illness HPI Narrative: 34-year-old female who has had ongoing right lower quadrant pain since July 17. This is her 3rd visit to the emergency department she was 1st seen she had an ultrasound CT pelvic examined treated for PID. She was then seen on July 23 for ongoing right lower quadrant pain. She again had a CT which did not show any acute appendicitis ultimately discharged home with hydrocodone. She reports that the pain has been off and on she actually went back to work 5 days ago however 4 days ago she got severe worsening pain, she was unable to walk and bear weight today because her abdomen hurts so bad whenever she walks. No fever chills no nausea or vomiting. Related Data Home Medications Medication Instructions Recorded Confirmed levothyroxine 125 mcg tablet 125 mcg PO DAILY 08/06/24 08/06/24 Previous Rx's Medication Instructions Recorded hydrocodone 5 mg-acetaminophen 325 1 tab PO Q8H PRN pain #10 tabs 07/17/24 mg tablet metronidazole 500 mg tablet 500 mg PO BID #28 tabs 07/17/24 hydrocodone 5 mg-acetaminophen 325 1 tab PO Q6H PRN pain #15 tabs 07/23/24 mg tablet levothyroxine 125 mcg capsule 125 mcg PO DAILY #30 caps 08/06/24 meloxicam 7.5 mg tablet 7.5 mg PO BID PRN pain #20 tabs 08/06/24 Allergies Allergy/AdvReac Type Severity Reaction Status Date / Time amitriptyline Allergy Unknown Verified 07/17/24 17:25 Patient History <Josephine Alba DO - Last Filed: 08/07/24 07:41> Social History Smoking Status: Former smoker Smoking Status: Former smoker Substance Use Type: does not use Exam <Josephine Alba DO - Last Filed: 08/07/24 07:41> Initial Vital Signs Initial Vital Signs: Vital Signs Temperature 99.6 F 08/06/24 12:31 Pulse Rate 91 H 08/06/24 12:31 Respiratory Rate 16 08/06/24 12:31 Blood Pressure 126/82 08/06/24 12:31 Pulse Oximetry 100 08/06/24 12:31 Oxygen Delivery Method Room Air 08/06/24 12:31 GENERAL: Alert nontoxic well-appearing 34-year-old and in no acute distress. HEENT: Head atraumatic,EOMI, pupils reactive, face symmetric, moist mucous membranes CARDIOVASCULAR: Regular rate and rhythm without murmurs, rubs or gallops. RESPIRATORY: Breath sounds equal bilaterally, no wheezes rales or rhonchi. ABDOMEN: Soft, significant right lower quadrant pain with guarding and rebound positive heel tap EXTREMITIES: Normal range of motion, no clubbing or edema. Neurovascularly intact NEUROLOGICAL: Alert and oriented x4.Normal gait and speech. Cranial nerves II through XII grossly intact. SKIN: Warm, dry, no laceration, no petechiae, no rashes or lesions. <Emelina Richardson, DO - Last Filed: 08/07/24 02:55> Initial Vital Signs Initial Vital Signs: Vital Signs Temperature 99.6 F 08/06/24 12:31 Pulse Rate 91 H 08/06/24 12:31 Respiratory Rate 16 08/06/24 12:31 Blood Pressure 126/82 08/06/24 12:31 Pulse Oximetry 100 08/06/24 12:31 Oxygen Delivery Method Room Air 08/06/24 12:31 Course <Josephnie Alba, DO - Last Filed: 08/07/24 07:41> Orders Ordered: Discontinued Medications Hydromorphone HCl (Hydromorphone 0.5 Mg Inj) 0.5 mg IV NOW ONE Stop: 08/06/24 17:04 Last Admin: 08/06/24 17:13 Dose: 0.5 mg Documented By: MELANIE Hydromorphone HCl (Hydromorphone 1 Mg Inj) 1 mg IV NOW ONE Stop: 08/06/24 18:44 Last Admin: 08/06/24 20:04 Dose: 1 mg Documented By: AB Ceftriaxone Sodium 2,000 mg/ (Sodium Chloride) 100 mls @ 200 mls/hr IV NOW ONE Stop: 08/06/24 18:44 Last Infusion: 08/06/24 20:04 Dose: Infused Documented By: Admin: 08/06/24 19:11 Dose: 200 mls/hr Documented By: Metronidazole (Flagyl) 500 mg in 100 mls @ 100 mls/hr IV NOW ONE Stop: 08/06/24 19:42 Last Infusion: 08/06/24 21:14 Dose: Infused Documented By: Admin: 08/06/24 20:04 Dose: 100 mls/hr Documented By: Ketorolac Tromethamine (Ketorolac 30 Mg/Ml Vial) 15 mg IV NOW ONE Stop: 08/06/24 15:36 Last Admin: 08/06/24 15:50 Dose: 15 mg Documented By: MELANIE Levothyroxine Sodium (Levothyroxine 125 Mcg Tablet) 125 mcg PO NOW ONE Stop: 08/06/24 16:49 Last Admin: 08/06/24 17:03 Dose: 125 mcg Documented By: MELANIE Ondansetron HCl (Ondansetron 4 Mg/2 Ml Inj) 4 mg IV NOW PRN PRN Reason: Nausea And Vomiting Ondansetron HCl (Ondansetron 4 Mg Odt) 4 mg PO NOW PRN PRN Reason: Nausea And Vomiting Vital Signs Vital signs: Vital Signs - 8 hr 08/06/24 19:00 08/06/24 19:00 08/06/24 19:36 Pulse Rate 51 L 54 L Respiratory Rate 12 27 H Blood Pressure 131/86 Pulse Oximetry 99 100 Oxygen Delivery Method Room Air 08/06/24 19:38 08/06/24 19:38 08/06/24 20:00 Pulse Rate 48 L Respiratory Rate 14 Blood Pressure 106/64 110/68 Pulse Oximetry 100 Oxygen Delivery Method 08/06/24 20:00 Pulse Rate 48 L Respiratory Rate 11 L Blood Pressure Pulse Oximetry 99 Oxygen Delivery Method <Emelina Richardson DO - Last Filed: 08/07/24 02:55> Orders Ordered: Discontinued Medications Hydromorphone HCl (Hydromorphone 0.5 Mg Inj) 0.5 mg IV NOW ONE Stop: 08/06/24 17:04 Last Admin: 08/06/24 17:13 Dose: 0.5 mg Documented By: MELANIE Hydromorphone HCl (Hydromorphone 1 Mg Inj) 1 mg IV NOW ONE Stop: 08/06/24 18:44 Last Admin: 08/06/24 20:04 Dose: 1 mg Documented By: Ceftriaxone Sodium 2,000 mg/ (Sodium Chloride) 100 mls @ 200 mls/hr IV NOW ONE Stop: 08/06/24 18:44 Last Infusion: 08/06/24 20:04 Dose: Infused Documented By: Admin: 08/06/24 19:11 Dose: 200 mls/hr Documented By: Metronidazole (Flagyl) 500 mg in 100 mls @ 100 mls/hr IV NOW ONE Stop: 08/06/24 19:42 Last Infusion: 08/06/24 21:14 Dose: Infused Documented By: Admin: 08/06/24 20:04 Dose: 100 mls/hr Documented By: Ketorolac Tromethamine (Ketorolac 30 Mg/Ml Vial) 15 mg IV NOW ONE Stop: 08/06/24 15:36 Last Admin: 08/06/24 15:50 Dose: 15 mg Documented By: MELANIE Levothyroxine Sodium (Levothyroxine 125 Mcg Tablet) 125 mcg PO NOW ONE Stop: 08/06/24 16:49 Last Admin: 08/06/24 17:03 Dose: 125 mcg Documented By: MELANIE Ondansetron HCl (Ondansetron 4 Mg/2 Ml Inj) 4 mg IV NOW PRN PRN Reason: Nausea And Vomiting Ondansetron HCl (Ondansetron 4 Mg Odt) 4 mg PO NOW PRN PRN Reason: Nausea And Vomiting Vital Signs Vital signs: Vital Signs - 8 hr 08/06/24 19:00 08/06/24 19:00 08/06/24 19:36 Pulse Rate 51 L 54 L Respiratory Rate 12 27 H Blood Pressure 131/86 Pulse Oximetry 99 100 Oxygen Delivery Method Room Air 08/06/24 19:38 08/06/24 19:38 08/06/24 20:00 Pulse Rate 48 L Respiratory Rate 14 Blood Pressure 106/64 110/68 Pulse Oximetry 100 Oxygen Delivery Method 08/06/24 20:00 Pulse Rate 48 L Respiratory Rate 11 L Blood Pressure Pulse Oximetry 99 Oxygen Delivery Method MDM - Weakness <Josephine Alba DO - Last Filed: 08/07/24 07:41> Lab Data 08/06/24 13:05 08/06/24 13:05 Labs: Lab Results 08/06/24 Range/Units 13:05 WBC 7.6 (4.5-11.0) X10^3/uL RBC 4.15 (4.0-5.2) X10^6/uL Hgb 11.7 L (12.0-16.0) g/dL Hct 35.7 L (36-46) % MCV 86.0 (80-100) fL MCH 28.2 (26-34) PG MCHC 32.7 (30-36) % RDW 15.1 H (11.6-14.8) % Plt Count 402 H (150-400) X10^3/uL Neut % (Auto) 80.1 H (50-75) % Lymph % (Auto) 13.1 L (25-40) % Rhea % (Auto) 6.3 (3-14) % Eos % (Auto) 0.0 L (2-4) % Baso % (Auto) 0.5 (0-2) % Neut # (Auto) 6100 (8078-6894) /uL Lymph # (Auto) 1000 L (2248-4842) /uL Rhea # (Auto) 500 (0-900) /uL Eos # (Auto) 0 (0-450) /uL Baso # (Auto) 0 (0-100) /uL PT 13.1 H (9.4-12.5) SECONDS INR 1.1 (0.9-1.3) Sodium 139 (137-145) mmol/L Potassium 3.7 (3.4-5.1) mmol/L Chloride 104 (98-107) mmol/L Carbon Dioxide 23 (22-32) mmol/L BUN 9 (7-17) mg/dL Creatinine 0.69 (0.52-1.04) mg/dL Estimated GFR > 60 (>60) mL/min BUN/Creatinine Ratio 13.0 (6-22) Glucose 94 (70-100) mg/dL Calcium 9.8 (8.4-10.2) mg/dL Total Bilirubin 0.9 (0.2-1.3) mg/dL AST 24 (14-36) IU/L ALT 15 (<35) IU/L Alkaline Phosphatase 49 (38-126) U/L Total Protein 8.2 (6.3-8.2) g/dL Albumin 5.0 (3.5-5.0) g/dL Globulin 3.2 (1.7-4.1) g/dL Albumin/Globulin Ratio 1.6 (1.0-2.8) Lipase 69 (23-300) U/L TSH 55.10 H (0.47-4.68) uIU/mL Free T4 0.31 L (0.78-2.19) ng/dL Point of Care Testing Test Results Negative Urine Dip Bedside Urine Glucose Negative Bedside Urine Bilirubin - Negative Bedside Urine Ketone - Negative Urine Specific [place] 1.005 Bedside Urine Occult Blood - Negative Bedside Urine pH 8.0 Bedside Urine Protein - Negative Bedside Urine Urobilinogen - Negative Bedside Urine Nitrite - Negative Bedside Urine Leukocytes - Negative Esterase Imaging Data US - abdomen: Radiologist Impression: PROCEDURE: US ABDOMEN LIMITED INDICATIONS: Right lower quad TECHNIQUE: Real-time focused scanning was performed of the abdomen, with image documentation. COMPARISON: None. Findings and impression: Questionable partially seen appendix measuring up to 6 mm. This is not confirmed. There is tenderness in the right lower quadrant. This tubular structure is noncompressible. Early appendicitis is possible. No abscess identified. Dictated by: Jorge Alberto Hughes M.D. on 08/06/2024 at 18:06 US - HEATER OPERATOR HELPER: Radiologist Impression: PROCEDURE: US PELVIC COMPLETE INDICATIONS: right side pain TECHNIQUE: Real-time scanning was performed of the pelvic organs, with image documentation. Additional endovaginal scanning was necessary due to incomplete visualization of the adnexal and endometrial structures by transabdominal scanning. COMPARISON: [facility], US PELVIC COMPLETE, 07/17/2024, 17:59. FINDINGS: Uterus: 10 x 6 x 5 cm. Endometrium within normal limits at 4 mm. Homogeneous echotexture. Retroverted positioning. Ovaries: Nonenlarged bilaterally. This measures up to 9 cc on the right and 4 cc on the left. Color and spectral flows are seen bilaterally. Other: No pathologic free abdominal or pelvic fluid. IMPRESSION: No ovarian enlargement. Color and spectral flows are seen bilaterally. No acute uterine abnormality Dictated by: Jorge Alberto Hughes M.D. on 08/06/2024 at 18:08 [facility] Narrative Medical decision making narrative: Patient is a healthy 34-year-old female presenting today with ongoing worsening right lower quadrant pain. She has had significant workup in the past couple of weeks including pelvic exam pelvic ultrasound [address] She reports it was getting better but now can not walk. She does describe some burning in her leg but it is not like sciatica worse going down the back of her leg. An on exam she is quite tender. Blood work does not show any leukocytosis or significant abnormality urinalysis and test her knee Abdominal ultrasound and pelvic ultrasound do show mildly dilated appendix but could be early possible appendicitis 184 Dr. Alatorre surgery updated patient's symptoms test results does not think she needs a repeat CT recommends antibiotics discharged home and return tomorrow for re-evaluate I discussed with the patient surgeries plan I have re-evaluated her she continues to be very tender requiring more Dilaudid. No suspicion for drug- seeking behavior. Normal discussed the ultrasound does show possible early appendicitis though her previous CTs do not show any. We discussed risk of radiation. At this time she agrees to have another CT I think that it is reasonable to have 1 now she is having increased pain Patient signed out to Dr. Richardson awaiting CT <Emelina Rcihardson, - Last Filed: 08/07/24 02:55> Lab Data Labs: Lab Results 08/06/24 Range/Units 13:05 WBC 7.6 (4.5-11.0) X10^3/uL RBC 4.15 (4.0-5.2) X10^6/uL Hgb 11.7 L (12.0-16.0) g/dL Hct 35.7 L (36-46) % MCV 86.0 (80-100) fL MCH 28.2 (26-34) PG MCHC 32.7 (30-36) % RDW 15.1 H (11.6-14.8) % Plt Count 402 H (150-400) X10^3/uL Neut % (Auto) 80.1 H (50-75) % Lymph % (Auto) 13.1 L (25-40) % Rhea % (Auto) 6.3 (3-14) % Eos % (Auto) 0.0 L (2-4) % Baso % (Auto) 0.5 (0-2) % Neut # (Auto) 6100 (2505-5254) /uL Lymph # (Auto) 1000 L (1537-0061) /uL Rhea # (Auto) 500 (0-900) /uL Eos # (Auto) 0 (0-450) /uL Baso # (Auto) 0 (0-100) /uL PT 13.1 H (9.4-12.5) SECONDS INR 1.1 (0.9-1.3) Sodium 139 (137-145) mmol/L Potassium 3.7 (3.4-5.1) mmol/L Chloride 104 (98-107) mmol/L Carbon Dioxide 23 (22-32) mmol/L BUN 9 (7-17) mg/dL Creatinine 0.69 (0.52-1.04) mg/dL Estimated GFR > 60 (>60) mL/min BUN/Creatinine Ratio 13.0 (6-22) Glucose 94 (70-100) mg/dL Calcium 9.8 (8.4-10.2) mg/dL Total Bilirubin 0.9 (0.2-1.3) mg/dL AST 24 (14-36) IU/L ALT 15 (<35) IU/L Alkaline Phosphatase 49 (38-126) U/L Total Protein 8.2 (6.3-8.2) g/dL Albumin 5.0 (3.5-5.0) g/dL Globulin 3.2 (1.7-4.1) g/dL Albumin/Globulin Ratio 1.6 (1.0-2.8) Lipase 69 (23-300) U/L TSH 55.10 H (0.47-4.68) uIU/mL Free T4 0.31 L (0.78-2.19) ng/dL Point of Care Testing Test Results Negative Urine Dip Bedside Urine Glucose Negative Bedside Urine Bilirubin - Negative Bedside Urine Ketone - Negative Urine Specific [place] 1.005 Bedside Urine Occult Blood - Negative Bedside Urine pH 8.0 Bedside Urine Protein - Negative Bedside Urine Urobilinogen - Negative Bedside Urine Nitrite - Negative Bedside Urine Leukocytes - Negative Esterase Imaging Data CT scan - abdomen/pelvis: Radiologist Impression: Close Abdomen/Pelvis CT (Signed) Saul,Jorge Alberto - 08/06/24 Pelvis Ultrasound (Signed) Saul,Jorge Alberto - 08/06/24 Abdomen Ultrasound (Signed) Saul,Jorge Alberto - 08/06/24 Abdomen/Pelvis CT (Signed) Toney Gomez - 07/23/24 Abdomen/Pelvis CT (Signed) Juan Perez - 07/17/24 Pelvis Ultrasound (Signed) Juan Perez - 07/17/[address] [id number] [address] Scan Report Signed Patient: Basilia Nguyen MR#: [id number] : 1990 Acct:[id number] Age/Sex: 34 / F Date of Service: 08/06/24 Loc: ED Accession Number: [id number] Procedure: CT abdomen pelvis w con Ordering Provider: Josephine Alba D.O. PROCEDURE: CT ABDOMEN PELVIS W CON INDICATIONS: RLQ pain early appy on us TECHNIQUE: After the administration of intravenous contrast, axial sections acquired from the lung bases to the pubic symphysis. Coronal and sagittal reformats were performed. For radiation dose reduction, the following was used: automated exposure control, adjustment of mA and/or kV according to patient size. COMPARISON: [facility], , US PELVIC COMPLETE, 08/06/2024, 16:39. [facility], US, US ABDOMEN LIMITED, 08/06/2024, 16:38. [facility], CT, CT ABDOMEN PELVIS W CON, 07/23/2024, 16:52. FINDINGS: Image quality: Diagnostic Lower chest: Unremarkable lung bases Normal heart size Liver: Unremarkable Gallbladder and biliary system: Mildly distended gallbladder. No biliary ductal dilation Pancreas: No ductal dilation Spleen: Nonenlarged Adrenals: No discrete nodules Kidneys: No solid mass or hydronephrosis Vessels and lymph nodes: The main portal vein is patent. No abdominal aortic aneurysm. No pathologic lymph nodes by size criteria Bowel and peritoneum: No acute small bowel obstruction. The appendix is seen in the deep pelvis and is nondilated. Moderate to large fecal loading in the proximal colon. Colonic diverticula are present No pathologic ascites Body wall: Unremarkable Pelvis: Dilated pelvic veins. Reproductive organs are better evaluated on ultrasound. Bones: No acute or suspicious osseous finding. Mild degenerative changes. IMPRESSION: The appendix is seen and is nondilated in the deep pelvis. Moderate to large fecal loading in the proximal colon. No small bowel obstruction. Dilated pelvic veins is nonspecific, sometimes seen with pelvic congestion. Other findings above. Dictated by: Jorge Alberto Hughes M.D. on 08/06/2024 at 19:59 Approved by: Jorge Alberto Hughes M.D. on 08/06/2024 at 20:03 [facility] Narrative Medical decision making narrative: Patient is a healthy 34-year-old female presenting today with ongoing worsening right lower quadrant pain. She has had significant workup in the past couple of weeks including pelvic exam pelvic ultrasound [address] She reports it was getting better but now can not walk. She does describe some burning in her leg but it is not like sciatica worse going down the back of her leg. An on exam she is quite tender. Blood work does not show any leukocytosis or significant abnormality urinalysis and test her knee Abdominal ultrasound and pelvic ultrasound do show mildly dilated appendix but could be early possible appendicitis 184 Dr. Alatorre surgery updated patient's symptoms test results does not think she needs a repeat CT recommends antibiotics discharged home and return tomorrow for re-evaluate I discussed with the patient surgeries plan I have re-evaluated her she continues to be very tender requiring more Dilaudid. No suspicion for drug- seeking behavior. Normal discussed the ultrasound does show possible early appendicitis though her previous CTs do not show any. We discussed risk of radiation. At this time she agrees to have another CT I think that it is reasonable to have 1 now she is having increased pain Patient signed out to Dr. Richardson awaiting CT. 08/07/2024: Patient signed out to myself Dr. Richardson, patient is feeling much improved reviewed her labs, ultrasound findings and CT findings. Patient would like to return home. She states she was feeling much more comfortable. Reviewed appendix looks normal on her imaging and we will hold off on any antibiotics was mildly dilated on ultrasound but does show some possible pelvic congestion syndrome. Discussed with patient she also notes she has had some back pain radiating down her leg in his told she might have sciatica. She just recently got insurance we will give contact for follow up with Gynecology as well as primary care. Discussed return precautions all questions answered. Patient also has been out of her thyroid medication so this was refilled as well. Appendix is seen and non dilated in the deep pelvis [id number] fecal loading proximal colon no small bowel obstruction dilated pelvic veins nonspecific sometimes seen with pelvic congestion. Reproductive organs better evaluated ultrasound patient's labs imaging were reviewed by myself. Appendix was mildly dilated on ultrasound but is reassuring on CT. Patient may have some pelvic congestion syndrome causing some of symptoms. Discussed with patient we will hold off on antibiotics at this time. Referral given to follow up with Gynecology. Patient was offered a refill her levothyroxine as she has not been taking it. Discharge Plan Departure Patient Disposition: Home Clinical Impression: Abdominal pain Activity Restrictions/Additional Instructions: Your imaging shows normal appendix on CT does show some dilation of the veins to the pelvis this can sometimes be consistent with pelvic congestion syndrome. You may benefit from following up with OBGYN for evaluation. Contact information is included below. If you are also having some back pain and radiating down your leg this maybe more of a sciatica or back issue and primary care maybe helpful. Contacts included below on the card with your paperwork. You can continue to take the pain medication prescribed, you can also take meloxicam 1 tablet every 12 hours as needed for pain. Do not take other NSAIDs such as ibuprofen, leave or naproxen with this medication. Your TSH and T4 were also altered, please restart your home thyroid medication. Prescription was sent to [facility] in [place]. Please return for fevers, worsening abdominal back or flank pain, persistent vomiting, lightheadedness or passing out or other new or concerning changes. Prescriptions: New meloxicam 7.5 mg tablet 7.5 mg PO BID PRN (Reason: pain) Qty: 20 0RF levothyroxine 125 mcg capsule 125 mcg PO DAILY Qty: 30 0RF No Action hydrocodone-acetaminophen 5-325 mg tablet 1 tab PO Q6H PRN (Reason: pain) Qty: 15 0RF levothyroxine 125 mcg Tablet 125 mcg PO DAILY metronidazole 500 mg tablet 500 mg PO BID Qty: 28 0RF hydrocodone-acetaminophen 5-325 mg tablet 1 tab PO Q8H PRN (Reason: pain) Qty: 10 0RF Referrals: Miscellaneous,DoctorMD [Primary Care Provider] - Audra You DO [Physician] - Stand Alone Forms: Patient Portal/API, Work Release Note
--- NOTE | 2024-08-06 15:35 | DI.US.S_ITS ---
PROCEDURE: US PELVIC COMPLETE INDICATIONS: right side pain TECHNIQUE: Real-time scanning was performed of the pelvic organs, with image documentation. Additional endovaginal scanning was necessary due to incomplete visualization of the adnexal and endometrial structures by transabdominal scanning. COMPARISON: [facility], , US PELVIC COMPLETE, 07/17/2024, 17:59. FINDINGS: Uterus: 10 x 6 x 5 cm. Endometrium within normal limits at 4 mm. Homogeneous echotexture. Retroverted positioning. Ovaries: Nonenlarged bilaterally. This measures up to 9 cc on the right and 4 cc on the left. Color and spectral flows are seen bilaterally. Other: No pathologic free abdominal or pelvic fluid. IMPRESSION: No ovarian enlargement. Color and spectral flows are seen bilaterally. No acute uterine abnormality Dictated by: Jorge Alberto Hughes M.D. on 08/06/2024 at 18:08 Approved by: Jorge Alberto Hughes M.D. on 08/06/2024 at 18:09
--- NOTE | 2024-08-06 15:35 | DI.US.S_ITS ---
PROCEDURE: US ABDOMEN LIMITED INDICATIONS: Right lower quad TECHNIQUE: Real-time focused scanning was performed of the abdomen, with image documentation. COMPARISON: None. Findings and impression: Questionable partially seen appendix measuring up to 6 mm. This is not confirmed. There is tenderness in the right lower quadrant. This tubular structure is noncompressible. Early appendicitis is possible. No abscess identified. Dictated by: Jorge Alberto Hughes M.D. on 08/06/2024 at 18:06 Approved by: Jorge Alberto Hughes M.D. on 08/06/2024 at 18:08
[2024-08-06] MEDS: KETOROLAC 30 MG/ML VIAL 15 MG IV (15:50)
[2024-08-06 16:06] LABS: Free T4, Direct Thyroxine 0.31 ng/dL (0.78-2.19)
[2024-08-06] MEDS: LEVOTHYROXINE 125 MCG TABLET PO (17:03)
[2024-08-06] MEDS: HYDROMORPHONE 0.5 MG INJ IV (17:13)
--- NOTE | 2024-08-06 18:52 | DI.CT.S_ITS ---
PROCEDURE: CT ABDOMEN PELVIS W CON INDICATIONS: RLQ pain early appy on us TECHNIQUE: After the administration of intravenous contrast, axial sections acquired from the lung bases to the pubic symphysis. Coronal and sagittal reformats were performed. For radiation dose reduction, the following was used: automated exposure control, adjustment of mA and/or kV according to patient size. COMPARISON: [facility], US, US PELVIC COMPLETE, 08/06/2024, 16:39. [facility], US, US ABDOMEN LIMITED, 08/06/2024, 16:38. [facility], CT, CT ABDOMEN PELVIS W CON, 07/23/2024, 16:52. FINDINGS: Image quality: Diagnostic Lower chest: Unremarkable lung bases Normal heart size Liver: Unremarkable Gallbladder and biliary system: Mildly distended gallbladder. No biliary ductal dilation Pancreas: No ductal dilation Spleen: Nonenlarged Adrenals: No discrete nodules Kidneys: No solid mass or hydronephrosis Vessels and lymph nodes: The main portal vein is patent. No abdominal aortic aneurysm. No pathologic lymph nodes by size criteria Bowel and peritoneum: No acute small bowel obstruction. The appendix is seen in the deep pelvis and is nondilated. Moderate to large fecal loading in the proximal colon. Colonic diverticula are present No pathologic ascites Body wall: Unremarkable Pelvis: Dilated pelvic veins. Reproductive organs are better evaluated on ultrasound. Bones: No acute or suspicious osseous finding. Mild degenerative changes. IMPRESSION: The appendix is seen and is nondilated in the deep pelvis. Moderate to large fecal loading in the proximal colon. No small bowel obstruction. Dilated pelvic veins is nonspecific, sometimes seen with pelvic congestion. Other findings above. Dictated by: Jorge Alberto Hughes M.D. on 08/06/2024 at 19:59 Approved by: Jorge Alberto Hughes M.D. on 08/06/2024 at 20:03
[2024-08-06] MEDS: cefTRIAXone 2,000 MG in SODIUM CHLORIDE 0.9% 100 ML 200 MG IV (19:11)
[2024-08-06] MEDS: HYDROMORPHONE 1 MG INJ IV (20:04)
[2024-08-06] MEDS: metroNIDAZOLE 500 MG/100 ML PIGGYBACK 100 MG IV (20:04)
== END 2024-08-06 21:15 | disposition home or self-care (01) ==
PROVIDERS: Emergency Medicine; Emergency Provider Emergency Medicine
DX: R10.31 Right lower quadrant pain (principal); R00.1 Bradycardia, unspecified
CPT/HCPCS: 36415; 74177; 76705; 76830; 76856; 80053; 81003; 81025; 83690; 84439; 84443; 85025; 85610; 93005; 93975; 96365; 96367; 96375; 96376; 99284; J0696; J1170; J1885